=== PATIENT | female | born 1985 | race Caucasian/White ===

== ENCOUNTER 2021-09-07 10:45 | Emergency (ER) | payer OTHER ==
[2021-09-07 11:29] VITALS: BP 113/78; PULSE 92; RESP 20; TEMP 99.4
--- NOTE | 2021-09-07 12:22 | ED ---
Extremity Problem HPI - General Chief complaint: Extremity Problem,Nontraumatic Stated complaint: Left hand numb Time Seen by Provider: 09/07/21 11:34 Source: patient, RN notes reviewed Mode of arrival: ambulatory Limitations: no limitations - History of Present Illness Initial comments: 35-year-old female presents emergency from chief complaint of right hand numbness, weakness. 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 Patient states that she fell sleep for which she believes is 35 minutes or so woke up and noticed her right hand was numb, she difficulty moving it. Patient has no associated neck, headache, upper arm pain or weakness. States is only of her right wrist. She is [id number] inant. Patient states she doses are carpal tunnel went to sleep and states that she woke up today and did not resolve.. Patient states that she's never had these symptoms in the past no associated symptoms. - Related Data Previous Rx's Medication Instructions Recorded predniSONE 50 mg PO DAILY #5 tab 09/07/21 Allergies Allergy/AdvReac Type Severity Reaction Status Date / Time ciprofloxacin [From Cipro] Allergy Unknown Verified 09/07/21 11:25 sulfamethoxazole Allergy Unknown Verified 09/07/21 11:25 [From Bactrim] trimethoprim [From Bactrim] Allergy Unknown Verified 09/07/21 11:25 Review of Systems ROS Statement: Those systems with pertinent positive or pertinent negative responses have been documented in the HPI. ROS Other: All systems not noted in ROS Statement are negative. Past Medical History Past Medical History: No Reported History History of Any Multi-Drug Resistant Organisms: MRSA Date of last positivie culture/infection: 2013 MDRO Source:: knee Past Surgical History: No Surgical Hx Reported Past Psychological History: ADD/ADHD, Anxiety, Bipolar, Depression Smoking Status: Current every day smoker Past Alcohol Use History: None Reported Past Drug Use History: Marijuana General Exam Limitations: no limitations General appearance: alert, in no apparent distress Head exam: Present: atraumatic, normocephalic, normal inspection Eye exam: Present: normal appearance, PERRL, EOMI. Absent: scleral icterus, conjunctival injection, periorbital swelling ENT exam: Present: normal exam, normal oropharynx, mucous membranes moist Neck exam: Present: normal inspection, full ROM. Absent: tenderness, meningismus, lymphadenopathy Respiratory exam: Present: normal lung sounds bilaterally. Absent: respiratory distress, wheezes, rales, rhonchi, stridor Cardiovascular Exam: Present: regular rate, normal rhythm, normal heart sounds. Absent: systolic murmur, diastolic murmur, rubs, gallop, clicks Extremities exam: Present: other (Patient has weakness of the right wrist, hand there is equal radial pulses, cap refill less than 2 seconds patient is unable to extend her right wrist, digits 2 through 5 slight weakness of the thumb) Neurological exam: Present: motor sensory deficit, reflexes normal Course Vital Signs 09/07/21 11:25 Temperature 99.4 F Pulse Rate 92 Respiratory 20 Rate Blood Pressure 113/78 O2 Sat by Pulse 100 Oximetry Procedures - Orthopedic Splinting/Casting Injury #1 Side: right Upper Extremity Injury Location: short arm, wrist Upper Extremity Immobilizer: volar splint, synthetic pre-padded splint Medical Decision Making - Medical Decision Making Patient's case discussed with ed de la cruz on-call for orthopedics recommends patient be placed in a splint, on steroids for radial nerve palsy she has vascular intact. She is advised to follow-up within 24 hours return for worsening symptoms. Disposition Clinical Impression: Acute radial nerve palsy of right upper extremity Disposition: HOME SELF-CARE Condition: Stable Instructions (If sedation given, give patient instructions): Radial Nerve Palsy (ED) Additional Instructions: Please return to the Emergency Department if symptoms worsen or any other concerns. Prescriptions: predniSONE 50 mg PO DAILY #5 tab Is patient prescribed a controlled substance at d/c from ED?: No Referrals: Janeen Fritz MD [Primary Care Provider] - 1-2 days Bhupendra Hassan MD [STAFF PHYSICIAN] - 1-2 days Time of Disposition: 12:22
== END 2021-09-07 12:50 | disposition home or self-care (01) ==
LOC: EC 10:45
DX: G56.31 Lesion of radial nerve, right upper limb (principal); F17.200 Nicotine dependence, unspecified, uncomplicated; F12.90 Cannabis use, unspecified, uncomplicated; Z88.1 Allergy status to other antibiotic agents; Z88.2 Allergy status to sulfonamides
CPT/HCPCS: 29125; 99283